=== PATIENT | male | born 1940 ===

== ENCOUNTER 2020-11-18 16:09 | Inpatient (IN) ==
[2020-11-18] MEDS ORDERED: Lactated Ringers 1000 ml BAG 1,000 ML IV ONE ×2 (17:21→19:11)
[2020-11-18 18:06] LABS: ABS Basophils 0.1 10^3/ul (0-0.2); ABS Eosinophils 0.2 10^3/ul (0-0.6); ABS Monocytes 0.4 10^3/ul (0-0.8); ABS Neutrophils 10.4 10^3/ul (1.5-7.7); Eosinophil % 1.5 %; Hematocrit 28 % (42-52); Hemoglobin 8.7 g/dL (14.0-18.0); Lymphocyte % 8.4 %; Mean Corpuscular HGB Conc 32 g/dL (31-36); Mean Corpuscular Hemoglobin 33 pg (27-31); Mean Corpuscular Volume 105 fL (80-94); Mean Platelet Volume 6.4 fL (7.4-10.4); Nucleated Red Blood Cells % 0.1; Platelet Count 256 10^3/uL (150-450); Red Blood Count 2.64 10^6 /uL (4.18-5.48); Red Cell Distribution Width 14 % (10-15)
[2020-11-18] MEDS: Norepinephrine 16MCG/ML IVPRE 4,000 MCG/250 ML BAG IV SCH ×2 (18:08→21:12)
[2020-11-18 18:20] LABS: Blood Urea Nitrogen 22 mg/dL (6-24); Calcium 7.1 mg/dL (8.6-10.3); Chloride 110 mmol/L (101-111); EGFR Non-African American 29.7 (>60); Glucose 250 mg/dL (70-100); Magnesium 1.9 mg/dL (1.9-2.7); Phosphorus 6.1 mg/dL (2.5-5.0); Potassium 4.2 mmol/L (3.5-5.0); Sodium 137 mmol/L (135-145)
[2020-11-18 18:22] LABS: Anion Gap 13 mmol/L (2-11); CO2 Carbon Dioxide 14 mmol/L (22-32)
[2020-11-18] MEDS ORDERED: Sodium Bicarbonate 8.4% SYR 50 ml SYRINGE IV ONE (18:22)
[2020-11-18] MEDS ORDERED: Piperacillin/Tazobac ADVAN 3.375 GM in NS 0.9% 100 ml BAG 100 ML IV ONE (18:24)
[2020-11-18] MEDS ORDERED: Sodium Bicarbonate 8.4% SYR 50 ml SYRINGE ONE (18:24)
[2020-11-18] MEDS ORDERED: Magnesium Sulfate 2 gm BAG 2 GM/50 ML BAG IVPB ONE (18:27)
[2020-11-18] MEDS ORDERED: Magnesium Sulfate 2 gm BAG 2 GM/50 ML BAG ONE (18:31)
[2020-11-18 18:35] LABS: INR 1.22 (0.82-1.09)
[2020-11-18] MEDS ORDERED: Sodium Bicarb 8.4% Vial 50 ML 100 MEQ in D5W 1000 ml BAG 1,000 ML IV SCH (19:00)
[2020-11-18] MEDS ORDERED: Zosyn per Pharmacy NOTE FOLLOW UP SCH (19:00)
[2020-11-18] MEDS ORDERED: Azithromycin 500 mg/250 ml NS 500 MG/250 ML BAG IVPB ONE (20:30)
[2020-11-18] MEDS: Pantoprazole VIAL 40 MG VIAL IV SCH (20:31)
[2020-11-18 20:43] LABS: Troponin I 0.59 ng/mL (<0.03)
[2020-11-18] MEDS ORDERED: Chlorhexidine MOUTHWASH 0.12% 15 ML UDC SWISH SPIT SCH (21:00)
[2020-11-18 22:22] LABS: Alcohol, S < 10 mg/dL (<10)
[2020-11-18 22:32] LABS: Urine Benzodiazepine Screen Presumptive Positive (None Detect); Urine Cannabinoids Screen None Detected (None Detect); Urine Opiates Screen None Detected (None Detect)
[2020-11-19] MEDS: Norepinephrine 16MCG/ML IVPRE 4,000 MCG/250 ML BAG IV SCH ×2 (00:01→06:30)
[2020-11-19 00:10] LABS: ABS Lymphocytes 0.5 10^3/ul (1.0-4.8); ABS Monocytes 0.8 10^3/ul (0-0.8); ABS Neutrophils 10.5 10^3/ul (1.5-7.7); Eosinophil % 0.1 %; Hematocrit 27 % (42-52); Hemoglobin 8.6 g/dL (14.0-18.0); Lymphocyte % 4.1 %; Mean Corpuscular HGB Conc 32 g/dL (31-36); Mean Corpuscular Hemoglobin 33 pg (27-31); Mean Corpuscular Volume 104 fL (80-94); Mean Platelet Volume 6.8 fL (7.4-10.4); Platelet Count 245 10^3/uL (150-450); Red Blood Count 2.59 10^6 /uL (4.18-5.48); Red Cell Distribution Width 15 % (10-15); White Blood Count 11.8 10^3/uL (3.5-10.8)
[2020-11-19] MEDS: Dextran 70/Hypromellose Tears Eye Drops 15 ml BTL (for Artificials Tears) BOTH EYES PRN ×2 (00:14→10:23)
[2020-11-19] MEDS: ZOSYN 3.375 GM Q8H per EXTENDED INFUSION IV SCH ×2 (00:14→08:05)
[2020-11-19] MEDS: Chlorhexidine MOUTHWASH 0.12% 15 ML UDC TOPICAL SCH ×3 (00:14→08:05)
[2020-11-19 00:28] LABS: ALT 54 U/L (7-52); AST 113 U/L (13-39); Albumin 2.5 g/dL (3.2-5.2); Alkaline Phosphatase 60 U/L (34-104); Anion Gap 14 mmol/L (2-11); Blood Urea Nitrogen 27 mg/dL (6-24); CO2 Carbon Dioxide 15 mmol/L (22-32); Calcium 6.8 mg/dL (8.6-10.3); Chloride 104 mmol/L (101-111); EGFR African American 33.4 (>60); EGFR Non-African American 27.6 (>60); Globulin 2.5 g/dL (2-4); Glucose 450 mg/dL (70-100); Potassium 3.2 mmol/L (3.5-5.0); Sodium 133 mmol/L (135-145)
[2020-11-19 00:31] LABS: Troponin I 0.99 ng/mL (<0.03)
[2020-11-19 04:37] LABS: Hematocrit 26 % (42-52); Hemoglobin 8.3 g/dL (14.0-18.0); Mean Corpuscular HGB Conc 32 g/dL (31-36); Mean Corpuscular Hemoglobin 33 pg (27-31); Mean Corpuscular Volume 104 fL (80-94); Mean Platelet Volume 7.1 fL (7.4-10.4); Platelet Count 228 10^3/uL (150-450); Red Blood Count 2.49 10^6 /uL (4.18-5.48); Red Cell Distribution Width 14 % (10-15); White Blood Count 8.2 10^3/uL (3.5-10.8)
[2020-11-19] MEDS ORDERED: NS 0.9% IV SCH ×3 (04:55→05:00)
[2020-11-19] MEDS ORDERED: EPINEPHRINE IV SCH (04:55)
[2020-11-19 04:56] LABS: ALT 53 U/L (7-52); AST 107 U/L (13-39); Albumin 2.5 g/dL (3.2-5.2); Alkaline Phosphatase 54 U/L (34-104); Anion Gap 14 mmol/L (2-11); Blood Urea Nitrogen 29 mg/dL (6-24); CO2 Carbon Dioxide 16 mmol/L (22-32); Calcium 6.5 mg/dL (8.6-10.3); Chloride 101 mmol/L (101-111); EGFR African American 30.9 (>60); EGFR Non-African American 25.6 (>60); Globulin 2.4 g/dL (2-4); Magnesium 2.1 mg/dL (1.9-2.7); Phosphorus 4.6 mg/dL (2.5-5.0); Potassium 3.1 mmol/L (3.5-5.0); Sodium 131 mmol/L (135-145); Total Protein 4.9 g/dL (6.4-8.9)
[2020-11-19] MEDS ORDERED: SODIUM BICARB IV SCH ×2 (04:56→05:00)
[2020-11-19 05:02] LABS: Glucose 521 mg/dL (70-100)
[2020-11-19 05:03] LABS: Troponin I 0.85 ng/mL (<0.03)
[2020-11-19 05:10] LABS: ABS Lymphocytes 0.4 10^3/ul (1.0-4.8); ABS Monocytes 0.4 10^3/ul (0-0.8); ABS Neutrophils 7.4 10^3/ul (1.5-7.7); Eosinophil % 0.2 %; Lymphocyte % 4.9 %
[2020-11-19] MEDS ORDERED: KCL 20 MEQ/100 ML IVPREMIX 20 MEQ/100 ML BAG IV ONE ×2 (05:39→08:01)
[2020-11-19] MEDS ORDERED: Insulin Infusion 100unit/100mL 100 UNIT/100 ML BAG IV SCH (06:00)
[2020-11-19 07:51] LABS: Glucose Confirmatory 406 mg/dL (70-100)
[2020-11-19] MEDS ORDERED: Dextrose 50% Syringe 50 ml 25 GM/50 ML SYRINGE IV PUSH PRN ×2 (08:00→09:37)
[2020-11-19] MEDS: Pantoprazole VIAL 40 MG VIAL IV SCH (08:05)
[2020-11-19] MEDS ORDERED: Lorazepam PYXIS KEY PRN (10:15)
[2020-11-19] MEDS ORDERED: LORazepam 2 mg VIAL 1 ml IV PUSH PRN ×2 (10:15→10:18)
[2020-11-19] MEDS ORDERED: Atropine 1% (ORAL/SL) 15 ML BTL SL PRN (10:16)
[2020-11-19] MEDS ORDERED: Morphine 10 MG/ML VIAL (1 ml) ONE (10:27)
== END 2020-11-19 10:44 | disposition expired | DRG 208 ==
LOC: ICU 16:09
PROVIDERS: ADMIT Internal Medicine Critical Care Medicine; ATTEND Internal Medicine